=== PATIENT | female | born 1960 | race Caucasian/White ===

== ENCOUNTER → 2017-02-01 | Outpatient (CLI) | payer BC ==
[~2017-02-01] MED LIST: ALBU8TAB PO; CEPH500C PO; CITA20TA4 PO; CTLP20T PO; DCS100C PO; ESTR1TAB24 PO; GLIM2TAB; GLIM2TAB PO; HYDR-3454 PO; HYDR1TAB8 OP; IBP800T PO; IOHEXOL 350 MG/ML 100 ML (OMNIPAQUE 350) VIAL IV ONE; LEVO500T69 PO; LOVA20TA2 PO; LOVA40TA2 PO; MECL-106 PO; MELO-195 PO; MELO15TA14 PO; METF500T4 PO; METO-270 PO; MTF500T PO; NORG1TAB PO; NS 100 ML (IVPB) BAG IV ONE; ONDA8TAB6 PO; OSLT75C PO; PANT40TA2 PO; PHEN200T27 PO; SCOP1PAT TD; TRAGENTA PO; TRAM50TA2 PO; [UNRECOGNIZED DRUG - OTHER]; [UNRECOGNIZED DRUG - OTHER]
--- NOTE | 2017-02-01 11:27 | Diagnostic Imaging Report ---
PROCEDURE: CT abdomen and pelvis with contrast. TECHNIQUE: Multiple contiguous axial images were obtained through the abdomen and pelvis after administration of intravenous contrast. INDICATION: Right lower quadrant pain. COMPARISONS: 03/08/2015. FINDINGS: The lung bases are clear. There is mild diffuse hepatic steatosis. The gallbladder appears absent. The pancreas, spleen, adrenal glands appear unremarkable. The kidneys, ureters and bladder appear grossly unremarkable. The appendix is visualized and appears normal. There is diverticulosis of sigmoid colon. There is a segment of mid to distal descending colon and the midline of the low pelvis with thickened soto and pericolonic inflammatory change consistent with diverticulitis. There is no evidence of rupture abscess at this time. There is no free fluid or extraluminal air or adenopathy demonstrated. The abdominal aorta appears normal in caliber. No acute osseous abnormality is seen. IMPRESSION: 1. Diverticulosis of the sigmoid colon with moderate diverticulitis involving the mid to distal sigmoid colon in the midline of the low pelvis without evidence of abscess or rupture. 2. Diffuse hepatic steatosis. 3. No additional abnormality is seen. Dictated by: Dictated on workstation # [id number]
== END ==
LOC: RAD 09:42
PROVIDERS: ATTEND Nurse Practitioner Family
DX: K57.32 Diverticulitis of large intestine without perforation or abscess without bleeding (principal); K76.0 Fatty (change of) liver, not elsewhere classified
CPT/HCPCS: 74177

== ENCOUNTER 2017-08-19 05:37 | Outpatient (CLI) | payer BC ==
[~2017-08-19] VITALS: Ht 154.9 cm; Wt 69.4 kg
[~2017-08-19 05:37] MED LIST changes: -IOHEXOL 350 MG/ML 100 ML (OMNIPAQUE 350) VIAL IV ONE; -METO-270 PO; +METO-387 PO; -NS 100 ML (IVPB) BAG IV ONE; -SCOP1PAT TD; +SCOP1PAT11 TD
[2017-08-19] MEDS ORDERED: ESTR1TAB24 PO (15:36)
[2017-08-19] MEDS ORDERED: LOVA40TA2 PO (15:36)
[2017-08-19] MEDS ORDERED: CITA20TA9 PO (15:36)
[2017-08-19] MEDS ORDERED: MELO-170 PO (15:38)
[2017-08-19] MEDS ORDERED: PANT40TA2 PO (15:38)
[2017-08-19] MEDS ORDERED: DULA0.75 SQ (15:38)
[2017-08-19] MEDS ORDERED: ASPI-586 PO (15:38)
[2017-08-27] MEDS ORDERED: TRAM50TA2 PO (08:50)
== END 2017-08-19 15:42 ==
LOC: PREOP 05:37
PROVIDERS: ATTEND Surgery
DX: Z01.818 Encounter for other preprocedural examination (principal); M67.432 Ganglion, left wrist

== ENCOUNTER 2017-08-27 05:55 | Day surgery (SDC) | payer BC ==
[~2017-08-27] VITALS: Ht 154.9 cm; Wt 69.4 kg
[~2017-08-27 05:55] MED LIST changes: +ASPI-586 PO; +CITA20TA9 PO; +DULA0.75 SQ; +MELO-170 PO
--- OUTSIDE RECORDS SUMMARY | 2017-08-27 05:59 | XMS REPORT | Continuity of Care Document ---
Author Author [facility] Organization [facility] Address Unknown Phone Unavailable Allergies Active Description Code Type Severity Reaction Onset Reported/Identified Relationship to Patient Clinical Status Yes Sulfa (Sulfonamide Antibiotics) [id number] Drug Allergy Unknown N/A 2005 Medications There is no data. Problems Date Dx Coded Attending Type Code Diagnosis Diagnosed By 12/14/2012 LAST PONCE MD Ot 617.0 UTERINE ENDOMETRIOSIS 12/14/2012 LAST PONCE MD Ot 618.4 UTERVAGINAL PROLAPSE NOS 12/14/2012 LAST PONCE MD Ot 625.6 FEM STRESS INCONTINENCE 12/14/2012 LAST PONCE MD Ot 626.2 EXCESSIVE MENSTRUATION 12/25/2012 RUDOLPH ANGULO Ot 599.0 12/25/2012 RUDOLPH ANGULO Ot 780.60 05/21/2014 NIKUNJ DOMINIQUE, ALEX Cates Ot 724.1 06/14/2014 NIKUNJ DOMINIQUE, ALEX Cates Ot 724.1 11/09/2014 JEFF DOMINIQUE, ARMAAN Brewer Ot 780.2 11/10/2014 NIKUNJ DOMINIQUE, ALEX Cates Ot 724.1 11/29/2014 ALEX CALVIN MD Ot 780.2 01/21/2015 ALEX CALVIN MD Ot 724.1 01/21/2015 ALEX CALVIN MD Ot 780.2 02/05/2015 Ot 733.00 02/05/2015 Ot 733.94 02/05/2015 Ot 733.00 02/05/2015 Ot 793.82 02/05/2015 Ot V76.12 02/05/2015 Ot 793.80 02/05/2015 Ot 610.3 02/05/2015 Ot 611.0 02/05/2015 LAST PONCE MD Ot 285.9 02/05/2015 LAST OPNCE MD, Ot 625.6 02/05/2015 ROSARIO DOMINIQUE, LAST Moise Ot 626.2 02/05/2015 ROSARIO DOMINIQUE, LAST Moise Ot V72.63 02/05/2015 ROSARIO DOMINIQUE, LAST Moise Ot V74.8 02/07/2015 ADAM DOMINIQUE, NADIA Taavres Ot 780.2 02/13/2015 ADAM DOMINIQUE, NADIA Tavares Ot E78.5 02/13/2015 ADAM DOMINIQUE, NADIA J Ot F32.9 02/13/2015 ADAM DOMINIQUE, NADIA J Ot R55 02/18/2015 JL DOMINIQUE, SYMONE K Ot R56.9 02/26/2015 JL DOMINIQUE, SYMONE K Ot R56.9 02/26/2015 JL DOMINIQUE, SYMONE K Ot R56.9 03/14/2015 NIKUNJ DOMINIQUE, ALEX D Ot E11.9 03/14/2015 NIKUNJ DOMINIQUE, ALEX D Ot E86.0 03/14/2015 NIKUNJ DOMINIQUE, ALEX D Ot K25.9 03/14/2015 NIKUNJ DOMINIQUE, ALEX D Ot K29.70 03/14/2015 NIKUNJ DOMINIQUE, ALEX D Ot K82.4 03/14/2015 NIKUNJ DOMINIQUE, ALEX D Ot N17.9 03/14/2015 NIKUNJ DOMINIQUE, ALEX D Ot N18.9 03/14/2015 NIKUNJ DOMINIQUE, ALEX D Ot Z79.4 07/08/2015 NIURKA DOMINIQUE, WYATT M Ot K29.70 07/08/2015 NIURKA DOMINIQUE, WYATT M Ot Z01.818 07/08/2015 NIURKA DOMINIQUE, WYATT M Ot Z87.11 07/08/2015 NIURKA DOMINIQUE, WYATT M Ot K25.9 07/08/2015 NIURKA DOMINIQUE, WYATT M Ot K29.70 07/09/2015 NIURKA DOMINIQUE, WYATT M Ot K25.9 07/09/2015 NIURKA DOMINIQUE, WYATT M Ot K29.70 07/10/2015 NIURKA DOMINIQUE, WYATT M Ot K25.9 07/10/2015 NIURKA DOMINIQUE, WYATT M Ot K29.70 06/16/2016 Ot 733.00 OSTEOPOROSIS NOS 06/16/2016 Ot 733.94 STRESS FRACTURE OF THE METATARSALS 06/16/2016 Ot 733.00 OSTEOPOROSIS NOS 06/16/2016 Ot 793.82 INCONCLUSIVE MAMMOGRAM 06/16/2016 Ot V76.12 OTH SCREEN MAMMO-MALIGN NEOPLASM OF LILI 06/16/2016 Ot 793.80 UNSPEC ABNORMAL MAMMOGRAM 06/16/2016 Ot 610.3 FIBROSCLEROSIS OF BREAST 06/16/2016 Ot 611.0 INFLAM DISEASE OF BREAST 06/16/2016 LAST PONCE MD Ot 285.9 ANEMIA NOS 06/16/2016 LAST PONCE MD Ot 625.6 FEM STRESS INCONTINENCE 06/16/2016 LAST PONCE MD Ot 626.2 EXCESSIVE MENSTRUATION 06/16/2016 LAST PONCE MD Ot V72.63 PRE-PROCEDURAL LABORATORY EXAMINATION 06/16/2016 LAST PONCE MD Ot V74.8 SCREEN-BACTERIAL DIS NEC 02/10/2017 ROCIO MCDONALD APRN Ot K57.32 DVTRCLI OF LG INT W/O PERFORATION OR ABS 02/10/2017 ROCIO MCDONALD APRN Ot K76.0 FATTY (CHANGE OF) LIVER, NOT ELSEWHERE C 08/20/2017 NIURKA DOMINIQUE, WYATT Grace Ot M67.432 GANGLION, LEFT WRIST 08/20/2017 NIURKA DOMINIQUE, WYATT Grace Ot Z01.818 ENCOUNTER FOR OTHER PREPROCEDURAL EXAMIN Procedures There is no data. Results There is no data. Encounters ACCT No. Visit Date/Time Discharge Status Pt. Type Provider Facility Loc./Unit Complaint [id number] 08/19/2017 05:37:00 08/19/2017 15:42:00 DIS Outpatient WYATT BAH MD [facility] PREOP GANGLION CYST [id number] 02/01/2017 09:42:00 02/01/2017 23:59:59 CLS Outpatient ROCIO MCDONALD APRN [facility] RAD RLQ PAIN, [id number] 07/08/2015 09:08:00 07/08/2015 13:00:00 DIS Outpatient WYATT BAH MD [facility] SDC [id number] 07/04/2015 05:44:00 07/04/2015 16:02:00 DIS Outpatient NIURKA DOMINIQUE, WYATT M [facility] PREOP [id number] 03/08/2015 21:55:00 03/14/2015 10:50:00 DIS Inpatient ALEX CALVIN MD [facility] 4TH [id number] 02/14/2015 16:18:00 02/14/2015 23:59:59 CLS Outpatient SYMONE PARIKH MD [facility] RAD [id number] 02/13/2015 12:43:00 02/13/2015 23:59:59 CLS Outpatient SYMONE PARIKH MD [facility] LAB [id number] 02/13/2015 12:37:00 02/13/2015 14:39:00 DIS Outpatient NADIA MEDINA MD [facility] CARD [id number] 01/21/2015 16:55:00 01/21/2015 23:59:59 CLS Outpatient NADIA MEDINA MD [facility] LAB [id number] 11/16/2014 09:16:00 11/16/2014 23:59:59 CLS Outpatient ALEX CALVIN MD [facility] RT [id number] 11/09/2014 12:52:00 11/09/2014 15:43:00 DIS Emergency ARMAAN AGUILAR MD [facility] ER [id number] 05/18/2014 11:04:00 05/18/2014 23:59:59 CLS Outpatient ALEX CALVIN MD [facility] RAD [id number] 12/25/2012 20:19:00 12/25/2012 22:16:00 DIS Emergency RUDOLPH ANGULO [facility] ER [id number] 12/12/2012 07:27:00 12/14/2012 14:35:00 DIS Outpatient LAST PONCE MD [facility] DYSFUNCTIONAL UTERINE BLEED; INCONTINENCE [id number] 12/06/2012 11:28:00 12/06/2012 23:59:59 CLS Outpatient LAST PONCE MD [facility] PREOP CHRONIC PELVIC MASS,INCONTINENCE [id number] 08/27/2017 08:00:00 PEN Hafsa BAH MD, WYATT Grace [facility] SDC GANGLION CYST LEFT WRIST [id number] 07/06/2012 08:44:00 Document Registration [id number] 07/01/2012 09:11:00 Document Registration [id number] 06/10/2012 13:06:00 Document Registration [id number] 04/25/2012 13:07:00 Document Registration [id number] 04/15/2012 09:24:00 Document Registration [id number] 01/21/2015 16:56:44 ACT Document Registration
[2017-08-27 06:20] VITALS: BP 153/97
[2017-08-27] MEDS ORDERED: LABETALOL HCL 20 MG/4 ML VIAL ONE (06:35)
[2017-08-27] MEDS ORDERED: ceFAZolin 1,000 MG (ANCEF) VIAL ONE (06:45)
[2017-08-27] MEDS ORDERED: NS (IVPB) 100 ML ONE (06:45)
[2017-08-27] MEDS ORDERED: DEXAMETHASONE 10 MG/ML (DECADRON) 1 ML VIAL ONE (06:53)
[2017-08-27] MEDS ORDERED: SEVOFLURANE (ULTANE) 15 ML INHAL SOLN ONE ×3 (06:53→08:37)
[2017-08-27] MEDS ORDERED: LIDOCAINE PF 2% 5 ML (XYLOCAINE) VIAL ONE (06:53)
[2017-08-27] MEDS ORDERED: proPOfol 200 MG/20 ML (DIPRIVAN) VIAL IV ONE (06:53)
[2017-08-27] MEDS ORDERED: ONDANSETRON 4 MG/2 ML (SDV) Z0FRAN ONE (06:53)
[2017-08-27] MEDS ORDERED: LACTATED RINGERS 1,000 ML IV PRN (06:56)
[2017-08-27] MEDS ORDERED: fentaNYL INJECTION 100 MCG/2 ML AMP ONE (06:59)
[2017-08-27] MEDS ORDERED: MIDAZOLAM 2 MG/2 ML (VERSED) VIAL ONE (06:59)
[2017-08-27] MEDS ORDERED: ceFAZolin INJECTION 1,000 MG in NS (IVPB) 100 ML IV ONE (07:00)
--- NOTE | 2017-08-27 07:54 | Progress Note-Pre Operative ---
Pre-Operative Progress Note H&P Reviewed The H&P was reviewed, patient examined and no changes noted. Date Seen by Provider: Jul 26, 2017 Time Seen by Provider: 10:20 Date H&P Reviewed: August 27, 2017 Time H&P Reviewed: 07:54 Pre-Operative Diagnosis: Ganglion cyst of left wrist WYATT BAH MD August 27, 2017 7:54 am
[2017-08-27] MEDS ORDERED: BUP/EPI 0.5% 1:200,000 (SENSORCAINE) 30 ML VIAL INJ ONE (08:45)
--- NOTE | 2017-08-27 08:48 | Operative Report ---
Operative Report Date of Procedure/Surgery August 27, 2017 Surgeon (s) WYATT BAH MD Dry Cleaning Checker (s): Balta Snyder Post-Operative Diagnosis Same Procedure Performed Excision of ganglion cystleft wrist Description of Procedure Anesthesia Type: General Estimated blood loss (mL): Minimal Specimen(s) collected/removed Ganglion cyst Description of the Procedure Indication for the procedure: This lady presented with a symptomatic, 2 cm ganglion cyst involving the volar aspect of the left wrist. She was offered excision after reviewing the natural history of recurrence associated with the condition Description of procedure: She was placed supine on the operating table and general anesthesia induced. A gram of Ancef was administered intravenously as prophylaxis against wound infection. Left wrist was prepared and draped in the usual sterile manner. A tourniquet was placed, the pressure being maintained at 200 mmHg. A 2 cm longitudinal incision was made and the ganglion cyst excised. Some venous tributaries were controlled using ligaclips very minimal use of cautery. The tourniquet was released and no further bleeding was encountered. Incision was then closed using interrupted 4-0 Vicryl, in a subcuticular fashion. Pre-emptive analgesia was established using 0.5 percent Marcaine with epinephrine. She tolerated the procedure well, was extubated in the operating room and taken to the recovery room in a stable condition. Findings of the Procedure See op report Allergies and Home Medications Allergies Coded Allergies: Sulfa (Sulfonamide Antibiotics) (Verified Allergy, Unknown, 10/20/05) Home Medications Aspirin 81 Mg Tablet.dr, 81 MG PO DAILY, (Reported) Citalopram Hydrobromide 20 Mg Tablet, 20 MG PO HS, (Reported) Dulaglutide 0.75 Mg/0.5 Ml Pen.injctr, 0.75 MG SQ WEEK, (Reported) Estradiol 1 Mg Tablet, 1 MG PO HS, (Reported) Lovastatin 40 Mg Tablet, 40 MG PO HS, (Reported) Meloxicam 7.5 Mg Tablet, 7.5 MG PO HS, (Reported) Metoprolol Succinate 25 Mg Tab.er.24h, 25 MG PO HS, (Reported) Pantoprazole Sodium 40 Mg Tablet.dr, 40 MG PO HS, (Reported) Patient Home Medication List Home Medication List Reviewed: Yes WYATT BAH MD August 27, 2017 8:48 am
[2017-08-27] MEDS ORDERED: TRAM50TA2 PO (08:50)
--- NOTE | 2017-08-27 08:51 | Discharge Inst-Simple/Standard ---
Discharge Inst-Standard Discharge Medications New, Converted or Re-Newed RX: RX on Chart Patient Instructions/Follow Up Plan of Care/Instructions/FU: Left hand to be kept elevated as much as possible. Band-Aid off in 48 hours. Follow-up when necessary Activity as Tolerated: Yes Discharge Diet: No Restrictions WYATT BAH MD August 27, 2017 8:51 am
[2017-08-27] MEDS ORDERED: morphine INJ 10 MG/ML 1ML (SYR OR VIAL) IVP PRN (09:00)
[2017-08-27 09:50] VITALS: BP 152/101
[2017-08-27 09:51] VITALS: BP 152/101
[2017-08-27 10:20] VITALS: BP 147/90
--- NOTE | 2017-08-27 10:53 | Anesthesia-General Post-Op ---
General Patient Condition Mental Status/LOC: Same as Preop Cardiovascular: Satisfactory Nausea/Vomiting: Absent Respiratory: Satisfactory Pain: Controlled Complications: Absent Post Op Complications Complications None Follow Up Care/Instructions Patient Instructions None needed. Anesthesia/Patient Condition Patient Condition Patient is doing well, no complaints, stable vital signs, no apparent adverse anesthesia problems. No complications reported per nursing. JAMI RICE CRNA August 27, 2017 10:53
== END 2017-08-27 10:45 | disposition home or self-care (01) ==
LOC: SDC 05:55
PROVIDERS: ATTEND Surgery
DX: M67.432 Ganglion, left wrist (principal); E78.5 Hyperlipidemia, unspecified; M81.0 Age-related osteoporosis without current pathological fracture; Z79.82 Long term (current) use of aspirin; Z79.84 Long term (current) use of oral hypoglycemic drugs; Z79.899 Other long term (current) drug therapy
CPT/HCPCS: 82962; 87081; 88304

== ENCOUNTER → 2019-06-06 | Outpatient (CLI) | payer BC ==
[~2019-06-06] MED LIST changes: -GLIM2TAB PO; +GLIM2TAB2 PO; -HYDR-3454 PO; +HYDR-3455 PO; -METO-387 PO; +MTP25TSR PO; +TRM50T PO
--- NOTE | 2019-06-06 14:04 | Diagnostic Imaging Report ---
INDICATION: Screening. The current study was also evaluated with a Computer Aided Detection (CAD) system. 3-D Tomographic imaging was also performed. COMPARISON: Comparison made with prior examination from 06/10/2012. FINDINGS: There are scattered fibroglandular densities bilaterally. There are a few benign-type calcifications. There is a surgical clip in the upper-inner left breast. There is no dominant mass, spiculated lesion, or suspicious calcification identified. The skin, nipples, and axillae are unremarkable. IMPRESSION: Benign. ACR BI-RADS Category 2: Benign findings. Result letter will be mailed to the patient. Note: At least 10% of breast cancer is not imaged by mammography. Dictated by: Dictated on workstation # [id number]
== END ==
LOC: RAD 12:58
DX: Z12.31 Encounter for screening mammogram for malignant neoplasm of breast (principal)
CPT/HCPCS: 77067

== ENCOUNTER → 2021-11-12 | Outpatient (CLI) | payer BC ==
[~2021-11-12] MED LIST changes: -GLIM2TAB2 PO; +GLIM2TAB4 PO; -MECL-106 PO; +MECL-149 PO; +SCOP1PAT10 TD; -SCOP1PAT11 TD
--- NOTE | 2021-11-12 11:21 | Diagnostic Imaging Report ---
INDICATION: Routine screening. COMPARISON: 06/06/2019 and 06/10/2012. TECHNIQUE: 2D and 3D bilateral screening mammography was performed with CAD. FINDINGS: Both breasts are heterogeneously dense, limiting the sensitivity of mammography. A marker clip in the medial left breast is again noted. There is a tiny benign nodule in the outer left breast, stable. Scattered benign calcifications are noted. No spiculated mass or malignant-appearing microcalcifications are seen. The axillae are unremarkable. IMPRESSION: No mammographic features suspicious for malignancy are identified. ACR BI-RADS Category 2: Benign findings. Result letter will be mailed to the patient. Note: At least 10% of breast cancer is not imaged by mammography. Dictated by: Dictated on workstation # [id number]
== END ==
LOC: RAD 10:15
PROVIDERS: ATTEND Nurse Practitioner Family
DX: Z12.31 Encounter for screening mammogram for malignant neoplasm of breast (principal)
CPT/HCPCS: 77063; 77067